=== PATIENT | female | born 1960 | race Two or more races ===

== ENCOUNTER 2023-09-15 14:42 | Outpatient (AMB) | payer OTHER, SELFPAY ==
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
[2023-09-15 14:53] VITALS: BP 173/95; PULSE 93; O2SAT 96; BMI 35.5
== END 2023-09-15 15:31 | disposition home or self-care (01) ==
PROVIDERS: PCP Physician Assistant; Referring Provider Physician Assistant; Visit Provider Nurse Practitioner Family
DX: M79.622 Pain in left upper arm (principal); M54.2 Cervicalgia; M47.812 Spondylosis without myelopathy or radiculopathy, cervical region; M62.838 Other muscle spasm; Z91.81 History of falling
CPT/HCPCS: 99204

== ENCOUNTER → 2023-09-15 14:42 | Outpatient (BNVA) | payer OTHER, SELFPAY | PROVIDERS: PCP Physician Assistant; Referring Provider Physician Assistant; Visit Provider Nurse Practitioner Family | DX: M79.622 Pain in left upper arm (principal); M54.2 Cervicalgia; M47.812 Spondylosis without myelopathy or radiculopathy, cervical region; M62.838 Other muscle spasm; Z91.81 History of falling | CPT/HCPCS: 99202 ==

== ENCOUNTER 2024-03-24 14:55 | Outpatient (REF) | payer OTHER, SELFPAY | END 2024-03-24 14:56 | disposition home or self-care (01) | LOC: HO.HAP 14:55 | PROVIDERS: Visit Provider Physician Assistant | DX: Z13.89 Encounter for screening for other disorder (principal) ==

== ENCOUNTER 2024-03-31 11:01 | Outpatient (REF) | payer SELFPAY | END 2024-03-31 11:02 | disposition home or self-care (01) | LOC: HO.HAP 11:01 | PROVIDERS: Visit Provider Physician Assistant | DX: Z13.89 Encounter for screening for other disorder (principal) ==

== ENCOUNTER 2024-04-08 13:18 | Outpatient (REF) | payer SELFPAY ==
--- NOTE | 2024-04-08 15:31 | MHC.AU.HA3 ---
Hearing Instrument Follow-Up- Binaural Date of Visit: 04/08/24 Right Ear: Oskar, Model, Color, Serial Number: Amanda 2 miniRITE, [id number] Tree Warden Repair Warranty: n/a Tree Warden Loss and Damage Warranty: n/a [facility] Service Plan: n/a Battery Size: 312 Seal Extrusion Operator/Slim Tube: Earmold/Dome/CShell/SlimTip:8mm dbl Type of Wax Guard: prowax mini Dispensed By: [facility] Date of Fitting: unknown Left Ear: Oskar, Model, Color, Serial Number: Amanda 2 miniRITE, [id number] Tree Warden Repair Warranty: n/a Tree Warden Loss and Damage Warranty: n/a [facility] Service Plan: n/a Battery Size: 312 Seal Extrusion Operator/Slim Tube: Earmold/Dome/CShell/SlimTip: 8mm dbl Type of Wax Guard: prowax mini Dispensed By: [facility] Date of Fitting: unknown Follow-Up Summary: Maranda returned for adjustment of her current hearing aids. Programmed to audiogram, changed to closed domes. Pt reported comfortable sound quality. Increased noise management as pt works at [employer] and there are many loud machines. Enabled VC. Daughter states they have not yet heard from [facility] but will try calling Alfredo directly. Diagnosis Code(s): Primary Diagnosis: H90.3 Bilateral Sensorineural Hearing Loss Signature: Provider: Poncho Bunn, CCC-A
== END 2024-04-08 13:19 | disposition home or self-care (01) ==
LOC: HO.HAP 13:18
PROVIDERS: Visit Provider Physician Assistant
DX: Z46.1 Encounter for fitting and adjustment of hearing aid (principal); H90.3 Sensorineural hearing loss, bilateral
CPT/HCPCS: 92593

== ENCOUNTER 2025-03-16 14:36 | Outpatient (REF) | payer MEDICARE, MEDICAID, SELFPAY ==
--- NOTE | 2025-03-16 15:44 | MHC.AU.HA3 ---
Hearing Instrument Follow-Up- Binaural Date of Visit: 03/16/25 Right Ear: Make, Model, Color, Serial Number: Sharon Dumonta 2 miniRITE-T SN: [id number] Tablet Making Machine Operator Helper Repair Warranty: n/a Tablet Making Machine Operator Helper Loss and Damage Warranty: n/a [facility] Service Plan: n/a Battery Size: 312 Supervisor Hospitality House/Slim Tube: 1/85 Earmold/Dome/CShell/SlimTip:8mm double tom dome with retention tail Type of Wax Guard: miniFit Dispensed By: [facility] Date of Fitting: Unknown Left Ear: Make, Model, Color, Serial Number: Otbrayan Nera 2 miniRITE-T SN: [id number] Tablet Making Machine Operator Helper Repair Warranty: n/a Tablet Making Machine Operator Helper Loss and Damage Warranty: n/a [facility] Service Plan: n/a Battery Size: 312 Supervisor Hospitality House/Slim Tube: 185 Earmold/Dome/CShell/SlimTip: 8mm double tom dome with retention tail Type of Wax Guard: miniFit Dispensed By: [facility] Date of Fitting: Unknown Follow-Up Summary: Accompanied by daughter, Ramila and service dog. Updated hearing test - see audio. Has insurance that covers HAs now, hoping to pursue new HAs given age of current pair. However, significant change in hearing, right worse than left. Given significant change, need updated medical clearance from ENT. In the meantime, reprogrammed current HAs to updated test. Set to initial fit settings with noticeable improvement in hearing in office. Reran feedback analyzer. Maranda will schedule Hearing Aid Consultation pending medical clearance from ENT. Recommendations: Hearing instrument follow-up or maintenance as needed. Please contact our clinic with any questions or concerns. Diagnosis Code(s): Primary Diagnosis: H90.3 Bilateral Sensorineural Hearing Loss Signature: Provider: Rebel Morales, [facility]
--- OUTSIDE RECORDS SUMMARY | 2025-03-16 17:40 | XMS_ITS | Clinical Summary ---
Author Organization [facility] Address [address] [place] [address] Phone Care Team Providers Care Mobile Health Vehicle Operator Name Role Phone Bridgette Villegas Primary Care Provider [phone] Allergies Active Allergy Reactions Criticality Noted Date Comments Iodinated Contrast Media 10/13/2024 Medications aspirin 81 mg EC tablet Take 1 tablet (81 mg total) by mouth 1 (one) time each day. Active famotidine (PEPCID) 40 mg tablet Take 1 tablet (40 mg total) by mouth at bedtime. Active ibuprofen (ADVIL,MOTRIN) 200 mg tablet Take by mouth every 6 (six) hours if needed. Active dulaglutide (TRULICITY) 0.75 mg/0.5 mL pen injector injection Inject 0.5 mL (0.75 mg total) under the skin every 7 (seven) days. Active levothyroxine (SYNTHROID, LEVOTHROID) 200 mcg tablet Take 1 tablet (200 mcg total) by mouth 1 (one) time each day before breakfast. Active glipiZIDE (GLUCOTROL) 10 mg tablet Take 1 tablet (10 mg total) by mouth 2 (two) times a day before meals. Active rosuvastatin (CRESTOR) 10 mg tablet Take 1 tablet (10 mg total) by mouth 1 (one) time each day. Active metFORMIN (GLUCOPHAGE) 500 mg tablet Take 1 tablet (500 mg total) by mouth 1 (one) time each day with breakfast. Active losartan (COZAAR) 50 mg tablet Take 1 tablet (50 mg total) by mouth 1 (one) time each day. Active cyclobenzaprine (FLEXERIL) 10 mg tablet Take 1 tablet (10 mg total) by mouth 3 (three) times a day if needed for muscle spasms. Active ciprofloxacin-d exAMETHasone (CIPRODEX) otic suspension Administer 2 drops into each ear 2 (two) times a day. Active diphenhydrAMINE (BENADRYL) 25 mg tablet Take 1 tablet (25 mg total) by mouth at bedtime as needed for sleep. Active montelukast (SINGULAIR) 10 mg tablet Take 1 tablet (10 mg total) by mouth at bedtime. Active albuterol HFA (PROAIR HFA ; PROVENTIL HFA ; VENTOLIN HFA) 90 mcg/actuation inhaler Inhale 2 puffs by mouth every 6 (six) hours if needed for wheezing. Active budesonide-form oteroL (SYMBICORT) 160-4.5 mcg/actuation inhaler Inhale 2 puffs by mouth 2 (two) times a day. Rinse mouth with water after use to reduce aftertaste and incidence of candidiasis. Do not swallow. Active cyanocobalamin (VITAMIN B-12) 1,000 mcg tablet Take 1 tablet (1,000 mcg total) by mouth 1 (one) time each day. Active Active Problems Problem Noted Date Diagnosed Date Essential hypertension, benign 10/13/2024 Hypothyroidism (acquired) 10/13/2024 Low back pain 10/13/2024 Bilateral carpal tunnel syndrome 03/11/2024 Polyneuropathy associated wi th underlying disease ([facility] V24) 03/11/2024 Hearing aid worn 08/26/2023 Other specified glaucoma 12/31/2021 DJD (degenerative joint disease) of knee 017 Diabetes mellitus type 2, di et-controlled ([facility] V24, [facility] V28) 08/24/2015 Low vitamin B12 level 05/25/2014 Mild vitamin D deficiency 04/03/2013 Non morbid obesity 04/03/2013 Family History Medical History Relation Name Comments Breast cancer Mother's Sister Relation Name Status Comments Mother's Sister Alive Social History Tobacco Use Types Packs/Day Years Used Date Smoking Tobacco: Never Assessed Comments No Sex and Gender Information Value Date Recorded Sex Assigned at Not on file Legal Sex Female 12:52 AM EST Gender Identity Not on file Sexual Orientation Not on file Obstetrics History Para Term AB IAB SAB Ectopic Multiple Livin g Live Births 3 Last Filed Vital Signs Vital Sign Reading Time Taken Comments Blood Pressure 123/76 10/13/2024 3:07 PM EDT Pulse 83 10/13/2024 3:07 PM EDT Temperature - - Respiratory Rate - - Oxygen Saturation - - Inhaled Oxygen Concentration - - Weight 77.9 kg (171 lb 12.8 oz) 10/13/2024 3:07 PM EDT Height 154.9 cm (5' 1 ) 10/13/2024 3:07 PM EDT Body Mass Index 32.46 10/13/2024 3:07 PM EDT Plan of Treatment Health Maintenance Due Date Last Done Comments Diabetes: Annual Foot Exam 07/18/1969 Diabetes: Annual Retina Eye Exam 07/18/1969 Cervical Cancer Screening: Pap Smear 07/18/1980 Zoster Vaccines (1 of 2) 07/18/2009 Hepatitis C Screening 04/20/2022 Medicare Annual Wellness Visit 04/20/2022 Osteoporosis Screening (Bone Density Screening) 04/20/2022 Social Influencers of Health Screening 04/20/2022 Depression Screening 05/18/2024 Diabetes: Annual Urine Albumin-Creatinine Ratio (uACR) 06/11/2024 06/11/2023, 12/31/2021, 12/21/2018 Falls Risk Assessment 07/18/2024 COVID-19 Vaccine ( season) 2025 10/13/2020, 09/22/2020 Influenza Vaccine (#1) 2025 02/16/2014 Diabetes: Blood Sugar Control Test (HGBA1C) 04/14/2025 10/12/2024, 03/11/2024 Colorectal Cancer Screening: FIT-DNA (Cologuard) 05/08/2025 05/08/2022 Diabetes: Annual GFR (Glomerular Filtration Rate) 10/12/2025 10/12/2024, 03/11/2024 Hypertension/CHF/CAD Annual BMP Blood Test 10/12/2025 10/12/2024, 03/11/2024 Breast Cancer Screening 03/31/2026 03/31/20 24, 03/24/2023, 03/08/2021, Additional history exists Colorectal Cancer Screening: Colonoscopy 10/25/2026 Cholesterol Screening (Lipid Panel) 10/12/2029 10/12/2024, 10/12/2024, 03/11/2024, Additional history exists DTaP,Tdap,and Td Vaccines (2 - Td or Tdap) 03/10/2033 03/10/2023 RSV Immunization Adult Patients (1 - 1-dose 75+ series) 07/18/2034 Pneumococcal Vaccine: 50+ Years Completed 08/05/2022 HIB Vaccines Aged Out No longer eligi ble based on patient's age to complete this topic HPV Vaccines Aged Out No longer eligi ble based on patient's age to complete this topic Hepatitis A Vaccines Aged Out No long er eligible based on patient's age to complete this topic Hepatitis B Vaccines Aged Out No long er eligible based on patient's age to complete this topic IPV Vaccines Aged Out No longer eligi ble based on patient's age to complete this topic MMR Vaccines Aged Out No longer eligi ble based on patient's age to complete this topic Meningococcal ACWY Vaccine Aged Out N o longer eligible based on patient's age to complete this topic Meningococcal B Vaccine Aged Out No l onger eligible based on patient's age to complete this topic RSV Immunization Patients Under 20 months Aged Out No longer eligible based on patient's age to complete this topic Varicella Vaccines Aged Out No longer eligible based on patient's age to complete this topic Procedures Procedure Name Priority Date/Time Associated Diagnosis Comments MG MAMMO DIGITAL SCREENING W ALFRED BILAT Routine 03/31/2024 8:19 AM EST Encounter for screening mammogram for breast cancer from Last 3 Months or Most Recently Relevant to Health Maintenance Results * MG Mammo Digital Screening w Alfred bilat (03/31/2024 8:19 AM EST) Anatomical Region Laterality Modality Breast Bilateral Mammography 03/31/2024 10:4 1 AM EST Impressions 03/31/2024 10:47 AM EST No mammographic evidence of malignancy. No suspicious interval change. A negative mammogram in the presence of a clinically suspicious palpable abnormality does not preclude the possibility of malignancy or alter the indications for biopsy. ASSESSMENT: BI-RADS 1: NEGATIVE RECOMMENDATION(S): 1: Routine screening mammogram BILATERAL in 1 year. -------- FINAL REPORT -------- Dictated By: Reagan Ulrich Dictated Date: 03/31/2024 10:41 ET Assigned Physician: Reagan Ulrich Reviewed and Electronically Signed By: Reagan Ulrich Signed Date: 03/31/2024 10:47 ET Workstation ID: [id number] Transcribed By: Self Edit Transcribed Date: 03/31/2024 10:41 ET Narrative 03/31/2024 10:47 AM EST EXAM: SCREENING MAMMOGRAPHY, BILATERAL HISTORY: SCREENING. Maternal aunt with history of breast cancer. COMPARISON: 03/24/2023, 03/20/2022, 03/08/2021, 01/24/2020 TECHNIQUE: Synthesized CC and MLO projections of each breast. Tomosynthesis of each breast in the CC and MLO projections. ADDITIONAL IMAGING: None Computer-aided detection was employed with the [employer] AI 3-D. TISSUE DENSITY: There are scattered areas of fibroglandular density. (BI-RADS category B) FINDINGS: RIGHT BREAST: No suspicious mass. No suspicious calcification. No distortion. Stable low density oval mass in the 6 o'clock position. LEFT BREAST: No suspicious mass. No suspicious calcification. No distortion. No additional suspicious left breast findings Procedure Note Reagan Ulrich MD - 03/31/2024 EXAM: SCREENING MAMMOGRAPHY, BILATERAL HISTORY: SCREENING. Maternal aunt with history of breast cancer. COMPARISON: 03/24/2023, 03/20/2022, 03/08/2021, 01/24/2020 TECHNIQUE: Synthesized CC and MLO projections of each breast.Tomosynthesis of each breast in the CC and MLO projections. ADDITIONAL IMAGING: None Computer-aided detection was employed with the [employer] profound AI 3-D. TISSUE DENSITY: There are scattered areas of fibroglandular density.(BI-RADS category B) FINDINGS: RIGHT BREAST: No suspicious mass. No suspicious calcification. No distortion. Stablelow density oval mass in the 6 o'clock position. LEFT BREAST: No suspicious mass. No suspicious calcification. No distortion. Noadditional suspicious left breast findings IMPRESSION: No mammographic evidence of malignancy. No suspicious interval change. A negative mammogram in the presence of a clinically suspicious palpableabnormality does not preclude the possibility of malignancy or alter theindications for biopsy. ASSESSMENT: BI-RADS 1: NEGATIVE RECOMMENDATION(S): 1: Routine screening mammogram BILATERAL in 1 year. -------- FINAL REPORT -------- Dictated By: Reagan Ulrich Dictated Date: 03/31/2024 10:41 ET Assigned Physician: Reagan Ulrich Reviewed and Electronically Signed By: Reagan Ulrich Signed Date: 03/31/2024 10:47 ET Workstation ID: [id number] Transcribed By: Self Edit Transcribed Date: 03/31/2024 10:41 ET Bridgette SOARES IMG BI PROCEDURES Final Result from Last 3 Months or Most Recently Relevant to Health Maintenance Insurance [facility] MEDICAID - [place] MEDICARE Care Teams Mobile Health Vehicle Operator Relationship Specialty Start Date End Date Bridgette Villegas PA [address] [place] [address] PCP - General 07/08/22
--- OUTSIDE RECORDS SUMMARY | 2025-03-16 17:40 | XMS_ITS | Data Portability ---
Author Organization [place] - [facility], Allergy Address [address] [place] [id number] Care Team Providers Care Soils Technician Name Role Phone FLORENCIA LEE Primary Care Provider Assessment Encounter Date Assessment Date Assessment LastModified by Organization Details LastModified Time 03/18/2024 03/18/2024 63-year-old female presents today for evaluation of hearing loss. She reports that her hearing aids which are over 10 years old are broken. She does have hearing loss bilaterally with an asymmetry in the low frequencies with the right ear being worse. She did have an MRI 2 years ago without contrast which did not show any lesions. She is not able to have contrast due to allergies. I gave her medical clearance for updated hearing aids. I would recommend repeat audiogram to monitor the asymmetry. I do not have any old audiograms for comparison. [email or web address] Not available 03/18/2024 14:44:49 Plan of Treatment Reminders Order Date Submit Date Provider Last Modified By Organization Details Last Modified Time Details Appointments Establish ed 15 2024 02:00P Aron CRAIG MD Not available Not available Not available Lab None recorded. Referral None recorded. Procedures None recorded. Surgeries None recorded. Imaging None recorded. Medication Orders None recorded. Patient TargetsNo targets recorded. Patient InstructionsNo instructions recorded. Reason for Referral None Reported. Results Created Date Observation Date Name Description Value Unit Range Abnormal Flag Note LastModifiedBy Organization Detail LastModifiedTime 03/23/20 24 audio gram No observ ation record ed. BARCODE Not Available 2023 14:40:31 Result Notes None recorded. Problems Name Problem SNOMED Code Status Onset Date Resolution Date Notes Provider Name and Address Organization Details Recorded Time Sensorineural hearing loss of bilateral ears 049232854 Active 2023 RENETTA KRUGER , [address] [facility], [place], [phone], [facility] - [facility] 14:14:48 Problem Notes None recorded. Procedures Surgical History Date Name Laterality Status Provider Name and Address Organization Details Recorded Time 03/18/2024 Comp Audio with Tymps - 16303 & 82933 completed RENETTAMONTRELL KRUGER, [address] [facility] [address], [place], [address], [facility] - [facility] 03/18/2024 14:14:34 Imaging Results None recorded. Procedure Notes None recorded. Medical Equipment None Reported. Allergies No known drug allergies Medications Name Sig Start Date Stop Date Status Note LastModified by Organization Details LastModified Time losartan 50 mg tablet active Not Available Not Available Not Available celecoxib 200 mg capsule active Not Available Not Available Not Available cyclobenzaprine 10 mg tablet active Not Available Not Available Not Available metformin 500 mg tablet active Not Available Not Available Not Available levothyroxine 175 mcg tablet 03/18 completed Not Available Not Available Not Available ibuprofen 800 mg tablet active Not Available Not Available Not Available glipizide ER 10 mg tablet, extended release 24 hr 03/18 completed Not Available Not Available Not Available famotidine 40 mg tablet active Not Available Not Available Not Available alclometasone 0.05 % topical cream 03/18 completed Not Available Not Available Not Available aspirin 81 mg tablet,delayed release active Not Available Not Available Not Available tacrolimus 0.1 % topical ointment active Not Available Not Avail able Not Available betamethasone dipropionate 0.05 % topical cream 03/18 completed Not Available Not Available Not Available gabapentin 300 mg capsule active Not Available Not Available N ot Available levothyroxine 200 mcg tablet active Not Available Not Availab le Not Available bisacodyl 5 mg tablet,delayed release 03/18 completed Not Available Not Available Not Available rosuvastatin 10 mg tablet active Not Available Not Available No t Available GaviLyte-G 236 gram-22.74 gram-6.74 gram-5.86 gram oral solution 03/18 completed Not Available Not Available Not Available Vitals Date Recorded Body height Body mass index (BMI) Body weight Provider Name and Address Organization Details Last Updated DateTime 03/18/2024 154.94 cm 33.8 kg/m2 34382.03 g Miryam Post [place] - [facility] 03/18/2024 14:26:04 Social History None recorded. Functional Status None recorded. Mental Status None recorded. Family History Nothing Reported. Medical History No medical history recorded. Gynecological HistoryNo gynecological history recorded. Obstetrics History GPAL:G 0 P 0 0 0 0 Past Encounters Encounter ID Performer Location Encounter Start Date Encounter Closed Date Diagnosis/Indication Diagnosis SNOMED-CT Code Diagnosis ICD10 Code Diagnosis IMO Codes Diagnosis Note [id number] OCTAVIO CRAIG MD [facility] [address] [place] [phone] 03/18/2024 13:36:37 03/18/2024 14:50:24 Sensorineural hearing loss of bilateral ears 156607207 H90.3 Audiologic al evaluation results: Right ear: Mild sloping to severe sensorineu ral hearing loss with good word recognitio n. Left ear: Normal sloping to severe sensorineu ral hearing loss with excellent word recognitio n. Tympanomet ry: Right Ear:Type A Left Ear:Type A Health Concerns Section Related Observation LastModified by Organization Detai ls LastModified Time None Recorded Concern Status LastModified by Organization Details LastModified Time None Recorded Advance Directives Directive None Recorded Payers Insurance Date Sequence Insurance Name Policy Number Policy Shepard Covered Member ID Shepard Member ID Guarantor Name 03/18/2024 1 [facility] [employer] (MEDICAID HMO) [id number] Maranda Desai [id number] Maranda Desai Notes Date Note Type Note Provider Name and Address Organization Details Recorded Time 03/18/2024 text/html 63 yo F presents for evaluation of hearing loss. Hearing aids got in water, >10 years old. Most recent hearing test at [facility] years ago. Hearing has changed Has tinnitus on the right. Feels more loss on the left side. She had an MRI of the brain in December 2021 which showed no evidence of acute intracranial abnormality. There is fluid signal within the mastoid tip air cells bilaterally OCTAVIO CRAIG MD [address] [address], [place], [address], [facility] - [facility] 03/18/2024 14:44:58 OBGyn Episode No OBEpisode recorded.
== END 2025-03-16 14:37 | disposition home or self-care (01) ==
LOC: HO.SH 14:36
PROVIDERS: Visit Provider Physician Assistant
DX: Z01.118 Encounter for examination of ears and hearing with other abnormal findings (principal); H90.3 Sensorineural hearing loss, bilateral
CPT/HCPCS: 92557; 92567; 92593